=== PATIENT | male | born 1965 | race Two or more races ===

== ENCOUNTER 2020-04-28 06:31 | Outpatient (CLI) | payer SELFPAY | END 2020-04-28 23:59 | disposition home or self-care (01) | LOC: CVU 06:31 | PROVIDERS: ATTEND Internal Medicine Cardiovascular Disease | DX: I08.0 Rheumatic disorders of both mitral and aortic valves (principal); I11.9 Hypertensive heart disease without heart failure; I71.2 Thoracic aortic aneurysm, without rupture | CPT/HCPCS: 93306; 93356 ==